=== PATIENT | male | born 1980 | race American Indian/Alaskan Native ===

== ENCOUNTER 2019-02-16 09:00 | Day surgery (SDC) | payer BC ==
[2019-02-15 10:26] VITALS: BMI 37.5
[2019-02-16] MEDS ORDERED: Lactated Ringer's 500 ML IV ONE (11:09)
--- NOTE | 2019-02-16 11:10 | CP.SDSHP ---
Same Day Surgery H & P - History Proposed Procedure: EGD Pre-Op Diagnosis: heartburn - Allergies Allergies: Allergies No Known Allergies Allergy (Verified 02/15/19 10:22) - Physical Exam General Appearance: NAD Vital Signs: Vital Signs 02/16/19 02/16/19 09:24 10:35 Temperature 98 F Pulse Rate 77 64 Respiratory 20 18 Rate Blood Pressure 126/85 121/73 O2 Sat by Pulse 100 18 L Oximetry Mental Status: Alert & Oriented x3 Neuro: WNL Heart: WNL Lungs: WNL GI: WNL - {Optional Preform as Required} Abdomen: WNL - Impression Pt. Evaluated Today:Candidate for Anesthesia & Procedure: Yes - Date & Time Date: 02/16/19 Time: 11:09 Short Stay Discharge - Short Stay Discharge Admitting Diagnosis/Reason for Visit: HEARTBURN Disposition: HOME/ ROUTINE
[2019-02-16] MEDS ORDERED: Propofol 10 mg/ml Inj (20 ML) ONE ×2 (11:13→11:46)
[2019-02-16] MEDS ORDERED: Etomidate 20 mg/10ml Inj IV ONE ×2 (11:14→11:37)
[2019-02-16 13:07] VITALS: TEMP 98.6
[2019-02-16 14:00] VITALS: BP 118/73; PULSE 84; RESP 14; O2SAT 99
== END 2019-02-16 13:13 | disposition home or self-care (01) ==
LOC: C.ENDO 09:00
PROVIDERS: ATTEND Internal Medicine Gastroenterology
DX: K29.50 Unspecified chronic gastritis without bleeding (principal); B96.81 Helicobacter pylori [H. pylori] as the cause of diseases classified elsewhere; K20.9 Esophagitis, unspecified
CPT/HCPCS: 43239; 88305; 88312; 88313; 88342; J2001; J2704; J7120